=== PATIENT | male | born 1955 | race Caucasian/White ===

== ENCOUNTER → 2018-07-15 | Outpatient (CLI) | payer BC | LOC: RAD 13:24 | DX: M79.641 Pain in right hand (principal) ==

== ENCOUNTER → 2019-12-26 | Outpatient (CLI) | payer BC | LOC: MRI 13:25 | DX: M50.121 Cervical disc disorder at C4-C5 level with radiculopathy (principal); M47.22 Other spondylosis with radiculopathy, cervical region; M48.02 Spinal stenosis, cervical region; M25.78 Osteophyte, vertebrae ==